=== PATIENT | female | born 1950 | race Caucasian/White ===

== ENCOUNTER 2019-01-31 11:50 | Emergency (ER) | payer MEDICARE ==
[2019-01-31 12:32] VITALS: BP 121/51; PULSE 71; O2SAT 95
--- NOTE | 2019-01-31 12:47 | ERPHSYRPT ---
- History of Present Illness Time Seen by Provider: 01/31/19 12:42 Source: patient, family Exam Limitations: clinical condition Patient Subjective Stated Complaint: Pt has been laying on her left side for a few weeks without movement, entire left abdomen laterally and medially are red, draining, bruised looking, left shoulder is stiff above her head, daughter has been her main neonatal critical care nurse and changing her depends and trying to wash her Triage Nursing Assessment: Pt brought by EMS, unable to turn by self, morbidly obese, vitals wnl, skin breaking down on entire left side of abdomen, rash on bilateral breasts, pulses normal, unable to tend to any needs, requires full assistance Physician History: Ms. Abraham is a 68 years old morbidly obese bedridden patient bought in to ER by Ambulance with c/o redness on her left side of body. Patient has been laying on her left side for a few weeks without movement, entire left abdomen laterally and medially are red, draining, bruised looking, left shoulder is stiff above her head, daughter has been her main neonatal critical care nurse and changing her depends and trying to wash her Timing/Duration: day(s) Severity: moderate Associated Symptoms: denies symptoms Allergies/Adverse Reactions: Sulfa (Sulfonamide Antibiotics) [Sulfa(Sulfonamide Antibiotics)] Allergy ( Verified 01/31/19 12:32) Home Medications: Albuterol 2.5 mg/0.5 ml [PROVENTIL Solution 2.5 MG/0.5 ML] 2.5 mg IH Q4HPRN PRN 07/22/15 [History] Albuterol Sulfate [Proair Hfa] 8.5 gm IH Q4H PRN PRN 07/22/15 [History] Alprazolam [Xanax] 2 mg PO TID 07/22/15 [History] Furosemide 40 mg [Lasix 40 MG] 40 mg PO BID 07/22/15 [History] Glimepiride 2 mg [Amaryl 2 MG] 2 mg PO BID 07/22/15 [History] Hydrocodone Bit/Acetaminophen [Hydrocodon-Acetaminophn 10-325] 1 each PO Q4- 6HPRN PRN 07/22/15 [History] Insulin Glargine,Hum.rec.anlog [Lantus Solostar] 55 unit SQ QAM 07/22/15 [ History] Levothyroxine Sodium [Synthroid] 25 mcg PO DAILY 07/22/15 [History] Loratadine 10 mg [Claritin 10 mg] 10 mg PO DAILY 07/22/15 [History] Metoprolol Succinate 25 mg PO DAILY 07/22/15 [History] Montelukast Sodium 10 mg PO DAILY 07/22/15 [History] Nystatin Cream 30 gm [Nystop 30 gm Cream] 30 gm TP BID 07/22/15 [History] Potassium Chloride 10 Meq Tab* [Klor Con 10 MEQ] 20 meq PO BID 07/22/15 [ History] Simvastatin [Zocor] 20 mg PO DAILY 07/22/15 [History] Insulin Lispro [Humalog Kwikpen U-100] 20 unit SQ BID 01/31/19 [History] raNITIdine HCl [Ranitidine HCl] 300 mg PO DAILY 01/31/19 [History] Hx Tetanus, Diphtheria Vaccination/Date Given: Yes (up to date) Hx Influenza Vaccination/Date Given: Yes Hx Pneumococcal Vaccination/Date Given: No - Review of Systems Constitutional: Other (morbidly obese woman), No Fever, No Chills Eyes: No Symptoms Ears, Nose, & Throat: No Symptoms Respiratory: No Cough, No Dyspnea Cardiac: No Chest Pain, No Edema, No Syncope Abdominal/Gastrointestinal: No Abdominal Pain, No Nausea, No Vomiting, No Diarrhea Genitourinary Symptoms: No Dysuria Musculoskeletal: No Back Pain, No Neck Pain Skin: Cellulitis, Decubiti, Induration, Rash, Dryness Neurological: No Dizziness, No Focal Weakness, No Sensory Changes Psychological: No Symptoms Endocrine: No Symptoms All Other Systems: Reviewed and Negative - Past Medical History Pertinent Past Medical History: Yes Neurological History: No Pertinent History ENT History: No Pertinent History Cardiac History: High Cholesterol, Hypertension Respiratory History: COPD, Emphysema Endocrine Medical History: Diabetes Type II, Hypothyroidism Musculoskeletal History: Arthritis, Osteoporosis GI Medical History: GERD History: Other Psycho-Social History: Anxiety Female Reproductive Disorders: No Pertinent History Other Medical History: CHRONIC KNEE PROBLEMS - Past Surgical History Past Surgical History: Yes Neuro Surgical History: No Pertinent History Cardiac: Cardiac Catheterization Respiratory: No Pertinent History Gastrointestinal: Appendectomy, Cholecystectomy Genitourinary: No Pertinent History Musculoskeletal: No Pertinent History Female Surgical History: Hysterectomy Other Surgical History: PARTIAL THYROIDECTOMY. cataract left eye. biopsy on liver - Social History Smoking Status: Former smoker How long have you smoked: 50 Exposure to second hand smoke: No Drug Use: none Patient Lives Alone: No - Female History Hx Now: No - Nursing Vital Signs Nursing Vital Signs: Initial Vital Signs Temperature 98.3 F 01/31/19 12:17 Pulse Rate 71 01/31/19 12:17 Blood Pressure 121/51 01/31/19 12:17 O2 Sat by Pulse Oximetry 95 01/31/19 12:17 Pain Scale Pain Intensity 9 - Physical Exam General Appearance: no apparent distress, alert Eye Exam: PERRL/EOMI, eyes nml inspection Ears, Nose, Throat Exam: normal ENT inspection, TMs normal, pharynx normal, moist mucous membranes Neck Exam: normal inspection, non-tender, supple Respiratory Exam: normal breath sounds, lungs clear, No respiratory distress Cardiovascular Exam: regular rate/rhythm, normal heart sounds, normal peripheral pulses Gastrointestinal/Abdomen Exam: soft, normal bowel sounds, No tenderness, No mass Back Exam: normal inspection, normal range of motion, No CVA tenderness, No vertebral tenderness Extremity Exam: normal inspection, normal range of motion, pelvis stable, inflammation Neurologic Exam: alert, oriented x 3, cooperative, sensation nml, No motor deficits Skin Exam: warm, dry, other (erythema on left side of body due to chronic immobility), No rash Lymphatic Exam: No adenopathy SpO2: 95 - Course Nursing assessment & vital signs reviewed: Yes Ordered Tests: Active Orders 24 hr Category Date Time Status Wound Care STAT Care 01/31/19 12:19 Active BLOOD CULTURE Stat Lab 01/31/19 13:00 Received CBC W DIFF Stat Lab 01/31/19 12:40 Completed CMP Stat Lab 01/31/19 12:40 Completed Lactic Acid Stat Lab 01/31/19 12:19 Completed Medication Summary Discontinued Medications Generic Name Dose Route Start Last Admin Trade Name Freq PRN Reason Stop Dose Admin Cefazolin Sodium 1 g 01/31/19 13:47 Kefzol 1 Gm IM 01/31/19 13:48 STAT ONE Cefazolin Sodium Confirm 01/31/19 14:08 Kefzol 1 Gm Administered 01/31/19 14:09 Dose 1 g .ROUTE .STK-MED ONE Cefazolin Sodium/Dextrose Confirm 01/31/19 14:00 Kefzol 1 Gm/50 Ml Premix Administered 01/31/19 14:01 Dose 1 gm in 50 mls @ ud IV .STK-MED ONE Ketorolac Tromethamine 30 mg 01/31/19 13:47 Toradol 30 Mg Injection IV 01/31/19 13:48 STAT ONE Ketorolac Tromethamine Confirm 01/31/19 14:00 Toradol 30 Mg Injection Administered 01/31/19 14:01 Dose 30 mg .ROUTE .STK-MED ONE Lab/Rad Data: Laboratory Result Diagrams 01/31/19 12:40 01/31/19 12:40 Laboratory Results 01/31/19 01/31/19 01/31/19 Range/Units 12:40 12:40 12:19 WBC 10.1 (4.0-10.5) K/mm3 RBC 2.69 L (4.1-5.4) M/mm3 Hgb 9.1 L (12.0-16.0) gm/dl Hct 29.9 L (35-47) % MCV 111.2 H (78-100) fl MCH 33.8 H (26-32) pg MCHC 30.4 L (32-36) g/dl RDW 17.0 H (11.5-14.0) % Plt Count 400 (150-450) K/mm3 MPV 9.7 H (6-9.5) fl Gran % 68.1 H (36.0-66.0) % Eos # (Auto) 0.35 (0-0.5) Absolute Lymphs (auto) 2.14 (1.0-4.6) Absolute Monos (auto) 0.67 (0.0-1.3) Lymphocytes % 21.3 L (24.0-44.0) % Monocytes % 6.7 (0.0-12.0) % Eosinophils % 3.5 (0.00-5.0) % Basophils % 0.4 (0.0-0.4) % Absolute Granulocytes 6.86 (1.4-6.9) Basophils # 0.04 (0-0.4) Sodium 140 (137-145) mmol/L Potassium 3.9 (3.5-5.1) mmol/L Chloride 96 L (98-107) mmol/L Carbon Dioxide 38 H (22-30) mmol/L Anion Gap 9.9 (5-15) MEQ/L BUN 12 (7-17) mg/dL Creatinine 0.34 L (0.52-1.04) mg/dL Estimated GFR > 60.0 ML/MIN Glucose 136 H (74-106) mg/dL Lactic Acid 1.5 (0.4-2.0) Calcium 9.0 (8.4-10.2) mg/dL Total Bilirubin 1.90 H (0.2-1.3) mg/dL AST 38 H (14-36) U/L ALT 22 (0-35) U/L Alkaline Phosphatase 66 (38-126) U/L Serum Total Protein 7.7 (6.3-8.2) g/dL Albumin 3.7 (3.5-5.0) g/dL - Progress Progress: unchanged Counseled pt/family regarding: diagnosis, need for follow-up - Departure Departure Disposition: Home Clinical Impression: Cellulitis and abscess of other specified site Pressure injury of buttock, stage 1 Qualifiers: Laterality: left Qualified Code(s): L89.321 - Pressure ulcer of left buttock, stage 1 Condition: Stable Critical Care Time: Yes Critical Care Time(excluding separately billable procedures): Critical 30-74 mins Referrals: KATHE MORAN [Primary Care Provider] - Instructions: Pressure Sores (DC), How to Prevent Pressure Sores Additional Instructions: ZACK ABRAHAMEddie RODGERS was seen on 01/31/19 n the Emergency Room. At that time you were treated for an emergent condition, during your visit Laboratory, Radiology and/or other procedures may have been ordered. It is very important that you follow-up with your Primary Care Physician KATHE MORAN within the next 24- 48 hours to review your Emergency Room visit and the final results of testing that was ordered. Some test results such as Urine Cultures, Blood Cultures, and other cultures if ordered will not be finalized for 24-48 hours. If you do not have a Primary Care Provider please call the medical records department at [phone] to obtain a copy of your results or you may sign into our patient portal to obtain these results by visiting us @ [email or web address] and completing the following steps: 1. Click on the Patient Portal link 2. Click the Patient Self Enrollment Link to complete the enrollment form and entering your 3. Once the enrollment form is completed you will receive an email with a temporary ID and password at the email address you provided. 4. Next choose a user name and password. Your user name must be at least 4 characters long and your password must be at least 4 characters long. 5. Choose a security question from the list and provide your answer to the question. If you already have signed into the Health Portal you may access your Health Care Information 17/12 by the following steps: 1. Login to our website @ [email or web address] 2. Enter your original user name and password. FAQS The [facility] Health Portal is an online tool that contains your Lab Results, Radiology Reports, Visit History, Discharge Instructions and Health Summary Lab and Radiology Results will not be available for 72 hours on the portal. The Portal is a secure site, passwords are encryted and URLs are re-written so they cannot be copied and pasted. You and authorized family members are the only ones who can access your Portal. Also there is a timeout feature that protects your information if you leave the Portal page open. If you have technical difficulty please use the Contact Us link on the page this will allow you to submit any questions you have regarding the Portal or you may contact the Medical Record Department at [phone] ext [phone]. Discharge/Care Plan YESI ABRAHAM was seen on 01/31/19 in the Emergency Room. The patient was counseled regarding Diagnosis,Lab results, Imaging studies, need for follow up and when to return to the Emergency Room. Prescriptions given: Discharge Note I have spoken with the patient and/or caregivers. I have explained the patient' s condition, diagnosis and treatment plan based on the information available to me at this time. I have answered the patient's and/or caregiver's questions and addressed any concerns. The patient and/or caregivers have as good understanding of the patient's diagnosis, condition and treatment plan as can be expected at this point. The vital signs have been stable. The patient's condition is stable and appropriate for discharge from the emergency department. The patient will pursue further outpatient evaluation with the primary care physician or other designated or consulting physician as outlined in the discharge instructions. The patient and/or caregivers are agreeable to this plan of care and follow-up instructions have been explained in detail. The patient and/or caregivers have received these instruction. The patient/and or caregivers are aware that any significant change in condition or worsening of symptoms should prompt an immediate return to this or the closest emergency department or call 911. Prescriptions: Ciprofloxacin HCl/Dexameth [Ciprodex Otic Suspension] 7.5 ml OT QID #7.5 drops.susp Cephalexin Mh 500 mg [Keflex 500 mg] 500 mg PO Q6H #40 capsule Naproxen 375 mg [Naprosyn 375 mg] 375 mg PO Q8H #30 tablet
[2019-01-31 13:11] LABS: BASOPHIL % 0.4 % (0.0-0.4); Basophil (Absolute #) 0.04 (0-0.4); Eosinophil % 3.5 % (0.00-5.0); Eosinophil (Absolute #) 0.35 (0-0.5); Granulocyte Absolute (ANC) 6.86 (1.4-6.9); Granulocytes % 68.1 % (36.0-66.0); Hematocrit 29.9 % (35-47); Hemoglobin 9.1 gm/dl (12.0-16.0); Lymphocyte (Absolute #) 2.14 (1.0-4.6); Lymphocytes % 21.3 % (24.0-44.0); Mean Cell Volume 111.2 fl (78-100); Mean Corpuscular Hemoglobin 33.8 pg (26-32); Mean Corpuscular Hgb Concent. 30.4 g/dl (32-36); Mean Platelet Volume 9.7 fl (6-9.5); Monocyte (Absolute #) 0.67 (0.0-1.3); Monocytes % 6.7 % (0.0-12.0); Platelet Count 400 K/mm3 (150-450); Red Blood Count 2.69 M/mm3 (4.1-5.4); White Blood Count 10.1 K/mm3 (4.0-10.5)
[2019-01-31 13:16] LABS: ALBUMIN 3.7 g/dL (3.5-5.0); ALKALINE PHOSPHATASE 66 U/L (38-126); BLOOD UREA NITROGEN 12 mg/dL (7-17); CHLORIDE 96 mmol/L (98-107); Creatinine 1 0.34 mg/dL (0.52-1.04); Glucose 136 mg/dL (74-106); Potassium 3.9 mmol/L (3.5-5.1); SGOT/AST 38 U/L (14-36); SGPT/ALT 22 U/L (0-35); SODIUM 140 mmol/L (137-145); Total Protein 7.7 g/dL (6.3-8.2)
[2019-01-31 13:22] LABS: Carbon Dioxide 38 mmol/L (22-30)
[2019-01-31 13:30] LABS: ANION GAP 9.9 MEQ/L (5-15)
[2019-01-31] MEDS ORDERED: KEFZOL 1 GM IM ONE (13:47)
[2019-01-31] MEDS ORDERED: TORAdol 30 mg Injection IV ONE (13:47)
[2019-01-31] MEDS ORDERED: KEFZOL IV ONE (14:00)
[2019-01-31] MEDS ORDERED: TORAdol 30 mg Injection ONE (14:00)
[2019-01-31] MEDS ORDERED: KEFZOL 1 GM ONE (14:08)
== END 2019-01-31 15:04 | disposition home or self-care (01) ==
LOC: ED 11:50
DX: L03.818 Cellulitis of other sites (principal); L02.818 Cutaneous abscess of other sites; L89.321 Pressure ulcer of left buttock, stage 1
CPT/HCPCS: 36415; 80053; 83605; 85025; 87040; 96372; 96374; 99284; 99291; J0690; J1885

== ENCOUNTER 2020-06-28 16:53 | Observation (INO) | payer MEDICARE ==
[2020-06-28] MEDS ORDERED: Sodium Chloride 0.9% 1000 ML 1,000 ML IV SCH (17:15)
[2020-06-28] MEDS ORDERED: MORPHINE SULFATE 4 MG INJ IV ONE ×2 (17:15→19:22)
[2020-06-28 17:31] LABS: A-aADO2 41; ABG HEMOGLOBIN 11.8; ABG POTASSIUM 4.7 (3.5-5.1); ARTERIAL BLOOD GAS BASE EXCESS 23.5 (-2.0-2.0); ARTERIAL BLOOD GAS FIO2 28 %; ARTERIAL BLOOD GAS PCO2 38 mmHg (35-45); ARTERIAL BLOOD GAS PO2 111 mmHg (75-100); HCO3- 45.9 (22-28); HGB O2 SAT 90.5 g/dF (94-100); Methhemoglobin 1.1 % (1.4-1.5)
[2020-06-28 17:32] LABS: ARTERIAL BLOOD GAS pH 7.69 (7.35-7.45)
[2020-06-28 17:33] LABS: CARBOXYHEMOGLOBIN 7.4 % THgb (0.0-6.9)
--- NOTE | 2020-06-28 17:37 | ERPHSYRPT ---
- History of Present Illness Time Seen by Provider: 06/28/20 16:58 Source: patient Exam Limitations: no limitations Patient Subjective Stated Complaint: Pt states "I am not sure why I am here.". EMS states "Her sister called and stated she was more confused than normal. She is bed confined, she is on oxygen all the time at 2 lpm." Triage Nursing Assessment: Pt presented alert and oriented X 3, skin pwd Pt presented layin in left lateral position. PT left ear is red and painful. Pt night gown soiled and smelled of urine. PT pleasant. Physician History: Patient is a 70-year-old female, morbidly obese presents to our ED for evaluation of altered mental status. Patient sister observed that patient appears confused. Patient reportedly is experiencing visual hallucinations. Per report patient has been bedridden for over 2.5 years. EMS reports that patient was lying in stool and urine. No fevers reported. Patient is not sure why she is in the ED. She denies pain. No nausea or vomiting. No diarrhea r eported. Symptoms are mild to moderate in intensity. No specific worsening or improving factors. Patient unable to provide any significant information at this time. Patient voices no other complaints or concerns. No trauma reported. Timing/Duration: today Severity: moderate Modifying Factors: Improves With: nothing Associated Symptoms: denies symptoms Allergies/Adverse Reactions: Sulfa (Sulfonamide Antibiotics) [Sulfa(Sulfonamide Antibiotics)] Allergy (Verified 06/28/20 20:13) Home Medications: Albuterol Sulfate [Proair Hfa] 2 puffs IH Q4H PRN PRN 07/22/15 [History] Furosemide 40 mg [Lasix 40 MG] 40 mg PO BID 07/22/15 [History] Glimepiride 2 mg [Amaryl 2 MG] 4 mg PO BID 07/22/15 [History] Loratadine 10 mg [Claritin 10 mg] 10 mg PO DAILY 07/22/15 [History] Montelukast Sodium 10 mg PO DAILY 07/22/15 [History] Nystatin Cream 30 gm [Nystop 30 gm Cream] 30 gm TP BID 07/22/15 [History] Potassium Chloride 10 Meq Tab* [Klor Con 10 MEQ] 10 meq PO QID 07/22/15 [History] Simvastatin [Zocor] 20 mg PO DAILY 07/22/15 [History] Alprazolam 1 mg [Xanax 1 mg] 1 mg PO TID 06/28/20 [History] Bupropion HCl [Wellbutrin Xl] 300 mg PO DAILY 06/28/20 [History] Diclofenac Sodium Gel [Voltaren GEL] 1 applic TOP QID PRN 06/28/20 [History] Docusate Sodium 100 mg [Colace 100 MG] 100 mg PO BID 06/28/20 [History] Fluticasone Furoate [Arnuity Ellipta] 1 puff IH DAILY 06/28/20 [History] Hydrocodone Bit/Acetaminophen [Hydrocodon-Acetaminoph 7.5-325] 1 each PO Q6HPRN PRN 06/28/20 [History] Insulin Glargine,Hum.rec.anlog [Lantus Solostar] 50 unit SQ DAILY 06/28/20 [History] Levothyroxine Sodium [Synthroid] 125 mcg PO DAILY 06/28/20 [History] Metoprolol Tartrate 25 mg [Lopressor 25MG Tab] 25 mg PO DAILY 06/28/20 [History] Naloxegol Oxalate [Movantik] 25 mg PO DAILY 06/28/20 [History] Omeprazole 20 mg PO DAILY 06/28/20 [History] hydrOXYzine HCL [Hydroxyzine HCl] 50 mg PO Q6H PRN PRN 06/28/20 [History] Hx Tetanus, Diphtheria Vaccination/Date Given: No Hx Influenza Vaccination/Date Given: Yes Hx Pneumococcal Vaccination/Date Given: No Immunizations Up to Date: Yes Travel Risk - International Travel Have you traveled outside of the country in past 3 weeks: No - Coronavirus Screening Are you exhibiting any of the following symptoms?: No Close contact with a COVID-19 positive Pt in past 14-21 Days: No - Review of Systems Respiratory: Dyspnea All Other Systems: Unable due to condition - Past Medical History Pertinent Past Medical History: Yes Neurological History: No Pertinent History ENT History: No Pertinent History Cardiac History: High Cholesterol, Hypertension Respiratory History: COPD, Emphysema Endocrine Medical History: Diabetes Type II, Hypothyroidism Musculoskeletal History: Arthritis, Osteoporosis GI Medical History: GERD History: Other Psycho-Social History: Anxiety Female Reproductive Disorders: No Pertinent History Other Medical History: CHRONIC KNEE PROBLEMS - Past Surgical History Past Surgical History: Yes Neuro Surgical History: No Pertinent History Cardiac: Cardiac Catheterization Respiratory: No Pertinent History Gastrointestinal: Appendectomy, Cholecystectomy Genitourinary: No Pertinent History Musculoskeletal: No Pertinent History Female Surgical History: Hysterectomy Other Surgical History: PARTIAL THYROIDECTOMY. cataract left eye. biopsy on liver - Social History Smoking Status: Former smoker How long have you smoked: 50 Exposure to second hand smoke: No Drug Use: none Patient Lives Alone: No - Female History Hx Now: No - Nursing Vital Signs Nursing Vital Signs: Initial Vital Signs Temperature 97.3 F 06/28/20 16:53 Pulse Rate 74 06/28/20 16:53 Respiratory Rate 20 06/28/20 16:53 Blood Pressure 156/60 06/28/20 16:53 O2 Sat by Pulse Oximetry 97 06/28/20 16:53 Pain Scale Pain Intensity 2 - Physical Exam General Appearance: no apparent distress, alert, other (morbidly obese female. Patient is lying on her left side with her left arm above her head. Patient reportedly has been in this position for 2 years.) Eye Exam: PERRL/EOMI, eyes nml inspection Ears, Nose, Throat Exam: normal ENT inspection, TMs normal, pharynx normal, moist mucous membranes Neck Exam: normal inspection, non-tender, supple, full range of motion Respiratory Exam: normal breath sounds, lungs clear, No respiratory distress Cardiovascular Exam: regular rate/rhythm, normal heart sounds, normal peripheral pulses Gastrointestinal/Abdomen Exam: soft, normal bowel sounds, No tenderness, No mass Back Exam: normal inspection, normal range of motion, No CVA tenderness, No jaxson tebral tenderness Extremity Exam: normal inspection, normal range of motion, pelvis stable, limited range of motion (Left hip range of motion limited.), other (Pain at left shoulder. Left shoulder was initially fixed in the flexed externally rotated position however she was later able to bring it down to her side.) Neurologic Exam: alert, oriented x 3, cooperative, normal mood/affect, nml cerebellar function, nml station & gait, sensation nml, No motor deficits Skin Exam: normal color, warm, dry, No rash Lymphatic Exam: No adenopathy SpO2 Interpretation: normal SpO2: 97 O2 Delivery: Room Air - Course Nursing assessment & vital signs reviewed: Yes EKG Interpreted by Me: RATE (74), Sinus Rhythm, NORMAL AXIS, NORMAL INTERVALS - Radiology Exams Shoulder X-ray Interpretation: Interpreted by me (No fracture or dislocation. Osteopenia.) - CT Exams Head CT Interpretation: Tele-radiologist Report (Nonacute senile brain) Ordered Tests: Active Orders 24 hr Category Date Time Status Floor Installer STAT Care 06/28/20 17:07 Active EKG-ER Only STAT Care 06/28/20 17:06 Active IV Insertion STAT Care 06/28/20 17:06 Active Pulse Oximetry (ED) STAT Care 06/28/20 17:06 Active HEAD WITHOUT CONTRAST [CT] Stat Exams 06/28/20 17:17 Taken SHOULDER Stat Exams 06/28/20 18:19 Taken ARTERIAL BLOOD GASES Stat Lab 06/28/20 17:06 Completed BLOOD CULTURE Stat Lab 06/28/20 17:50 Received CBC W DIFF Stat Lab 06/28/20 17:37 Completed CK-Creatinine Phosphokinase Urgent Lab 06/28/20 17:37 Completed CMP Stat Lab 06/28/20 17:37 Completed CULTURE,URINE Stat Lab 06/28/20 19:37 Received Lactic Acid Stat Lab 06/28/20 17:06 Completed TROPONIN Q3H Lab 06/28/20 17:37 Completed TROPONIN Q3H Lab 06/28/20 20:15 Ordered TROPONIN Q3H Lab 06/28/20 23:15 Ordered TROPONIN Q3H Lab 06/29/20 02:15 Ordered TROPONIN Q3H Lab 06/29/20 05:15 Ordered TSH, 3RD Generation Urgent Lab 06/28/20 17:37 Completed UA W/RFX UR CULTURE Stat Lab 06/28/20 19:37 Completed Transfer Order Routine Transfer 06/28/20 Ordered Medication Summary Generic Name Dose Route Start Last Admin Trade Name Freq PRN Reason Stop Dose Admin Sodium Chloride 1,000 mls @ 100 mls/hr 06/28/20 17:15 06/28/20 17:49 Sodium Chloride 0.9% 1000 Ml IV 07/28/20 17:14 100 mls/hr .Q10H BERNARDINO Administration Discontinued Medications Generic Name Dose Route Start Last Admin Trade Name Freq PRN Reason Stop Dose Admin Morphine Sulfate 4 mg 06/28/20 17:15 06/28/20 17:52 Morphine Sulfate 4 Mg Inj IV 06/28/20 17:16 4 mg STAT ONE Administration Morphine Sulfate Confirm 06/28/20 17:46 Morphine Sulfate 4 Mg Inj Administered 06/28/20 17:47 Dose 4 mg .ROUTE .STK-MED ONE Morphine Sulfate 4 mg 06/28/20 19:22 06/28/20 19:26 Morphine Sulfate 4 Mg Inj IV 06/28/20 19:23 4 mg STAT ONE Administration Morphine Sulfate Confirm 06/28/20 19:25 Morphine Sulfate 4 Mg Inj Administered 06/28/20 19:26 Dose 4 mg .ROUTE .STK-MED ONE Lab/Rad Data: Laboratory Result Diagrams 06/28/20 17:37 06/28/20 17:37 Laboratory Results 06/28/20 06/28/20 06/28/20 Range/Units 19:37 17:37 17:37 WBC (4.0-10.5) K/mm3 RBC (4.1-5.4) M/mm3 Hgb (12.0-16.0) gm/dl Hct (35-47) % MCV (78-100) fl MCH (26-32) pg MCHC (32-36) g/dl RDW (11.5-14.0) % Plt Count (150-450) K/mm3 MPV (7.5-11.0) fl Gran % (36.0-66.0) % Eos # (Auto) (0-0.5) Absolute Lymphs (auto) (1.0-4.6) Absolute Monos (auto) (0.0-1.3) Lymphocytes % (24.0-44.0) % Monocytes % (0.0-12.0) % Eosinophils % (0.00-5.0) % Basophils % (0.0-0.4) % Absolute Granulocytes (1.4-6.9) Basophils # (0-0.4) Puncture Site pCO2 (35-45) mmHg pO2 (75-100) mmHg Base Excess (-2.0-2.0) O2 Saturation (94-100) g/dF ABG pH (7.35-7.45) ABG HCO3 (22-28) ABG O2 Sat (Measured) (95-100) % Dustin Test A-a Gradient a/A Ratio Hemoglobin Carboxyhemoglobin (0.0-6.9) % THgb Methemoglobin (1.4-1.5) % Potassium 4.1 (3.5-5.1) Temperature C POC O2 Flow Rate % Sodium 139 (137-145) mmol/L Chloride 88 L (98-107) mmol/L Carbon Dioxide 46 H (22-30) mmol/L Anion Gap 9.1 (5-15) MEQ/L BUN 12 (7-17) mg/dL Creatinine 0.27 L (0.52-1.04) mg/dL Estimated GFR > 60.0 ML/MIN Glucose 156 H (74-106) mg/dL Lactic Acid (0.4-2.0) Calcium 9.5 (8.4-10.2) mg/dL Total Bilirubin 0.90 (0.2-1.3) mg/dL AST 33 (14-36) U/L ALT 17 (0-35) U/L Alkaline Phosphatase 60 (38-126) U/L Creatine Kinase < 20 L (30-135) U/L Troponin I < 0.012 (0.000-0.034) ng/mL Serum Total Protein 7.3 (6.3-8.2) g/dL Albumin 3.7 (3.5-5.0) g/dL TSH 3rd Generation 0.093 L (0.47-4.68) mIU/L Urine Color YELLOW (YELLOW) Urine Appearance CLOUDY (CLEAR) Urine pH 7.0 (5-6) Ur Specific Zwingle 1.015 (1.005-1.025) Urine Protein 30 (Negative) Urine Ketones NEGATIVE (NEGATIVE) Urine Blood SMALL (0-5) Eugenio/ul Urine Nitrite NEGATIVE (NEGATIVE) Urine Bilirubin NEGATIVE (NEGATIVE) Urine Urobilinogen 4 (0-1) mg/dL Ur Leukocyte Esterase NEGATIVE (NEGATIVE) Urine WBC (Auto) 3-5 (0-5) /HPF Urine RBC (Auto) 3-5 (0-2) /HPF U Epithel Cells (Auto) NONE (FEW) /HPF Urine Bacteria (Auto) RARE (NEGATIVE) /HPF Amorphous Crystals FEW (NEGATIVE) /HPF Urine Mucus (Auto) MANY (NEGATIVE) /HPF Urine Culture Reflexed YES (NO) Urine Glucose NEGATIVE (NEGATIVE) mg/dL 02/02/21 02/02/21 Range/Units 17:37 17:06 WBC 5.1 (4.0-10.5) K/mm3 RBC 3.62 L (4.1-5.4) M/mm3 Hgb 11.4 L (12.0-16.0) gm/dl Hct 38.5 (35-47) % MCV 106.4 H (78-100) fl MCH 31.5 (26-32) pg MCHC 29.6 L (32-36) g/dl RDW 12.8 (11.5-14.0) % Plt Count 167 (150-450) K/mm3 MPV 10.3 (7.5-11.0) fl Gran % 38.3 (36.0-66.0) % Eos # (Auto) 0.21 (0-0.5) Absolute Lymphs (auto) 2.57 (1.0-4.6) Absolute Monos (auto) 0.37 (0.0-1.3) Lymphocytes % 50.2 H (24.0-44.0) % Monocytes % 7.2 (0.0-12.0) % Eosinophils % 4.1 (0.00-5.0) % Basophils % 0.2 (0.0-0.4) % Absolute Granulocytes 1.96 (1.4-6.9) Basophils # 0.01 (0-0.4) Puncture Site RIGHT RADIAL pCO2 38 (35-45) mmHg pO2 111 H (75-100) mmHg Base Excess 23.5 H (-2.0-2.0) O2 Saturation 90.5 L (94-100) g/dF ABG pH 7.69 H* (7.35-7.45) ABG HCO3 45.9 H* (22-28) ABG O2 Sat (Measured) 99.0 (95-100) % Dustin Test YES A-a Gradient 41 a/A Ratio 0.73 Hemoglobin 11.8 Carboxyhemoglobin 7.4 H* (0.0-6.9) % THgb Methemoglobin 1.1 L (1.4-1.5) % Potassium 4.7 (3.5-5.1) Temperature 37.0 C POC O2 Flow Rate 28 % Sodium (137-145) mmol/L Chloride (98-107) mmol/L Carbon Dioxide (22-30) mmol/L Anion Gap (5-15) MEQ/L BUN (7-17) mg/dL Creatinine (0.52-1.04) mg/dL Estimated GFR ML/MIN Glucose (74-106) mg/dL Lactic Acid 1.0 (0.4-2.0) Calcium (8.4-10.2) mg/dL Total Bilirubin (0.2-1.3) mg/dL AST (14-36) U/L ALT (0-35) U/L Alkaline Phosphatase (38-126) U/L Creatine Kinase (30-135) U/L Troponin I (0.000-0.034) ng/mL Serum Total Protein (6.3-8.2) g/dL Albumin (3.5-5.0) g/dL TSH 3rd Generation (0.47-4.68) mIU/L Urine Color (YELLOW) Urine Appearance (CLEAR) Urine pH (5-6) Ur Specific Zwingle (1.005-1.025) Urine Protein (Negative) Urine Ketones (NEGATIVE) Urine Blood (0-5) Eugenio/ul Urine Nitrite (NEGATIVE) Urine Bilirubin (NEGATIVE) Urine Urobilinogen (0-1) mg/dL Ur Leukocyte Esterase (NEGATIVE) Urine WBC (Auto) (0-5) /HPF Urine RBC (Auto) (0-2) /HPF U Epithel Cells (Auto) (FEW) /HPF Urine Bacteria (Auto) (NEGATIVE) /HPF Amorphous Crystals (NEGATIVE) /HPF Urine Mucus (Auto) (NEGATIVE) /HPF Urine Culture Reflexed (NO) Urine Glucose (NEGATIVE) mg/dL - Progress Progress: improved Progress Note: 06/28/20 20:41 Patient reassessed. She appears well. Patient denies pain. ABG reveals a compensatory metabolic alkalosis. Patient has been laying on her left side for approximately 2 years. Left shoulder and left hip range of motion limited. CT head negative for acute intracranial pathology. Per report, it appears patient is receiving suboptimal care. Patient will likely need to be placed. Case discussed with Dr. Bowen who accepts admission to observation. Plan of care discussed with patient. She agrees to admission at [facility] for further evaluation and treatment. Discussed with .: Marga Will see patient in: hospital (observation) Counseled pt/family regarding: diagnosis, rad results - Departure Departure Disposition: Observation Clinical Impression: Low TSH level, Altered mental status, Metabolic alkalosis with respiratory acidosis, Megaloblastic anemia Condition: Stable Critical Care Time: No Referrals: KATHE MORAN [Primary Care Provider] -
[2020-06-28] MEDS ORDERED: Sodium Chloride 0.9% 1000 ML 1,000 ML ONE (17:46)
[2020-06-28] MEDS ORDERED: MORPHINE SULFATE 4 MG INJ ONE ×2 (17:46→19:25)
[2020-06-28 17:55] LABS: Absolute Neutrophil Ct (ANC) 1.96 (1.4-6.9); BASOPHIL % 0.2 % (0.0-0.4); Basophil (Absolute #) 0.01 (0-0.4); Eosinophil % 4.1 % (0.00-5.0); Eosinophil (Absolute #) 0.21 (0-0.5); Hematocrit 38.5 % (35-47); Hemoglobin 11.4 gm/dl (12.0-16.0); Lymphocyte (Absolute #) 2.57 (1.0-4.6); Lymphocytes % 50.2 % (24.0-44.0); Mean Cell Volume 106.4 fl (78-100); Mean Corpuscular Hemoglobin 31.5 pg (26-32); Mean Corpuscular Hgb Concent. 29.6 g/dl (32-36); Mean Platelet Volume 10.3 fl (7.5-11.0); Monocyte (Absolute #) 0.37 (0.0-1.3); Monocytes % 7.2 % (0.0-12.0); Neutrophil % 38.3 % (36.0-66.0); Platelet Count 167 K/mm3 (150-450); Red Blood Count 3.62 M/mm3 (4.1-5.4); Red Cell Distribution Width 12.8 % (11.5-14.0); White Blood Count 5.1 K/mm3 (4.0-10.5)
[2020-06-28 18:09] LABS: ABG SITE RIGHT RADIAL; ALLEN TEST OK? YES
[2020-06-28 18:24] LABS: ALBUMIN 3.7 g/dL (3.5-5.0); ALKALINE PHOSPHATASE 60 U/L (38-126); BLOOD UREA NITROGEN 12 mg/dL (7-17); CHLORIDE 88 mmol/L (98-107); Calcium 9.5 mg/dL (8.4-10.2); Creatinine 1 0.27 mg/dL (0.52-1.04); EST GLOMERULAR FILTRATION RATE > 60.0 ML/MIN; Glucose 156 mg/dL (74-106); Potassium 4.1 mmol/L (3.5-5.1); SGOT/AST 33 U/L (14-36); SGPT/ALT 17 U/L (0-35); SODIUM 139 mmol/L (137-145); Total Protein 7.3 g/dL (6.3-8.2)
[2020-06-28 18:54] LABS: TROPONIN < 0.012 ng/mL (0.000-0.034); TSH, 3RD Generation 0.093 mIU/L (0.47-4.68)
[2020-06-28 18:56] LABS: Carbon Dioxide 46 mmol/L (22-30)
[2020-06-28 18:58] LABS: ANION GAP 9.1 MEQ/L (5-15); CK-Creatinine Phosphokinase < 20 U/L (30-135)
[2020-06-28 20:34] LABS: Amourphous Crystal FEW /HPF (NEGATIVE); Appearance CLOUDY (CLEAR); Bacteria RARE /HPF (NEGATIVE); Bilirubin NEGATIVE (NEGATIVE); Blood SMALL Ery/ul (0-5); Glucose NEGATIVE (NEGATIVE); Ketones NEGATIVE (NEGATIVE); Leukocyte Esterase NEGATIVE (NEGATIVE); Mucus MANY /HPF (NEGATIVE); Nitrite NEGATIVE (NEGATIVE); Protein,Urine Dip 30 (Negative); Specific Gravity 1.015 (1.005-1.025); Urobilinogen 4 mg/dL (0-1)
[2020-06-28] MEDS ORDERED: MORPHINE SULFATE 2 MG INJ IV PRN (22:54)
[2020-06-28] MEDS ORDERED: HUMALOG SQ PRN (23:31)
[2020-06-29 01:41] LABS: Absolute Neutrophil Ct (ANC) 5.06 (1.4-6.9); BASOPHIL % 0.3 % (0.0-0.4); Basophil (Absolute #) 0.02 (0-0.4); Eosinophil (Absolute #) 0 (0-0.5); Hemoglobin 10.5 gm/dl (12.0-16.0); Lymphocyte (Absolute #) 1.13 (1.0-4.6); Lymphocytes % 16.8 % (24.0-44.0); Mean Cell Volume 104.8 fl (78-100); Mean Corpuscular Hemoglobin 31.4 pg (26-32); Monocyte (Absolute #) 0.52 (0.0-1.3); Monocytes % 7.7 % (0.0-12.0); Neutrophil % 75.2 % (36.0-66.0); Platelet Count 156 K/mm3 (150-450); Red Blood Count 3.34 M/mm3 (4.1-5.4); Red Cell Distribution Width 12.7 % (11.5-14.0); White Blood Count 6.7 K/mm3 (4.0-10.5)
[2020-06-29] MEDS ORDERED: VENTOLIN COMMON CANISTER IH PRN ×2 (01:43→09:51)
[2020-06-29 01:54] LABS: ALBUMIN 3.3 g/dL (3.5-5.0); ALKALINE PHOSPHATASE 51 U/L (38-126); BLOOD UREA NITROGEN 12 mg/dL (7-17); CHLORIDE 93 mmol/L (98-107); Calcium 8.8 mg/dL (8.4-10.2); Creatinine 1 0.17 mg/dL (0.52-1.04); EST GLOMERULAR FILTRATION RATE > 60.0 ML/MIN; Glucose 140 mg/dL (74-106); Potassium 3.9 mmol/L (3.5-5.1); SGOT/AST 27 U/L (14-36); SGPT/ALT 15 U/L (0-35); SODIUM 138 mmol/L (137-145); Total Protein 6.7 g/dL (6.3-8.2)
[2020-06-29 02:05] LABS: ANION GAP 6.9 MEQ/L (5-15); Carbon Dioxide 42 mmol/L (22-30)
[2020-06-29] MEDS: Sodium Chloride 0.9% 1000 ML 1,000 ML IV SCH ×2 (04:42→14:48)
[2020-06-29] MEDS ORDERED: NORCO 5/325 MG PO PRN (08:15)
--- NOTE | 2020-06-29 08:20 | PCM.HP ---
History of Present Illness - Chief Complaint Chief Complaint: alteren mental status History of Present Illness: is a 70 year old female pt of Dr. Alegria'kianna with morbid obesity, COPD, HTN, hyperlipidemia, DM II, hypothyroid, OA, osteoporosis, GERD, and anxiety who was admitted through ER with altered mental status. Per ER note, pt's sister had noted pt was having hallucinations. When pt was brought in, she was in soiled nightgown (urine and feces). Pt has apparently been bedridden for the past 2.5 years. Other than being cleaned, she has been lying on her L side during that time. She does c/o bilateral ear pain, L>R. In ER her L shoulder was manipulated out of the posit ion it's been in for some time. Pt did not have a current med list, so one is being requested from the pharmacy. This morning she says she would feel better if she could just go home. She is oriented to place but not to time. - Review of Systems All Other Systems: Unable due to condition Medications & Allergies Home Medications: Home Medication List Albuterol Sulfate [Proair Hfa] 2 puffs IH Q4H PRN PRN 07/22/15 [History Confirmed 06/28/20] Furosemide 40 mg [Lasix 40 MG] 40 mg PO BID 07/22/15 [History Confirmed 06/28/20] Glimepiride 2 mg [Amaryl 2 MG] 4 mg PO BID 07/22/15 [History Confirmed 06/28/20] Loratadine 10 mg [Claritin 10 mg] 10 mg PO DAILY 07/22/15 [History Confirmed 06/28/20] Montelukast Sodium 10 mg PO DAILY 07/22/15 [History Confirmed 06/28/20] Nystatin Cream 30 gm [Nystop 30 gm Cream] 30 gm TP BID 07/22/15 [History Confirmed 06/28/20] Potassium Chloride 10 Meq Tab* [Klor Con 10 MEQ] 10 meq PO QID 07/22/15 [History Confirmed 06/28/20] Simvastatin [Zocor] 20 mg PO DAILY 07/22/15 [History Confirmed 06/28/20] Alprazolam 1 mg [Xanax 1 mg] 1 mg PO TID 06/28/20 [History Confirmed 06/28/20] Bupropion HCl [Wellbutrin Xl] 300 mg PO DAILY 06/28/20 [History Confirmed 06/28/20] Diclofenac Sodium Gel [Voltaren GEL] 1 applic TOP QID PRN 06/28/20 [History Confirmed 06/28/20] Docusate Sodium 100 mg [Colace 100 MG] 100 mg PO BID 06/28/20 [History Confirmed 06/28/20] Fluticasone Furoate [Arnuity Ellipta] 1 puff IH DAILY 06/28/20 [History Confirmed 06/28/20] Hydrocodone Bit/Acetaminophen [Hydrocodon-Acetaminoph 7.5-325] 1 each PO Q6HPRN PRN 06/28/20 [History Confirmed 06/28/20] Insulin Glargine,Hum.rec.anlog [Lantus Solostar] 50 unit SQ DAILY 06/28/20 [History Confirmed 06/28/20] Levothyroxine Sodium [Synthroid] 125 mcg PO DAILY 06/28/20 [History Confirmed 06/28/20] Metoprolol Tartrate 25 mg [Lopressor 25MG Tab] 25 mg PO DAILY 06/28/20 [H istory Confirmed 06/28/20] Naloxegol Oxalate [Movantik] 25 mg PO DAILY 06/28/20 [History Confirmed 06/28/20] Omeprazole 20 mg PO DAILY 06/28/20 [History Confirmed 06/28/20] hydrOXYzine HCL [Hydroxyzine HCl] 50 mg PO Q6H PRN PRN 06/28/20 [History Confirmed 06/28/20] Allergies/Adverse Reactions: Allergies Allergy/AdvReac Type Severity Reaction Status Date / Time Sulfa (Sulfonamide Allergy Unknown Verified 06/28/20 22:56 Antibiotics) [Sulfa(Sulfonamide Antibiotics)] - Past Medical History Past Medical History: Yes Neurological History: No Pertinent History ENT History: No Pertinent History Cardiac History: High Cholesterol, Hypertension Respiratory History: COPD, Emphysema Endocrine Medical History: Diabetes Type II, Hypothyroidism Musculoskelatal History: Arthritis, Osteoporosis GI Medical History: GERD History: Other Pyscho-Social History: Anxiety Reproductive Disorders: No Pertinent History Comment: CHRONIC KNEE PROBLEMS - Female History Are you now?: No - Past Surgical History Past Surgical History: Yes Neuro Surgical History: No Pertinent History Cardiac History: Cardiac Catheterization Respiratory Surgery: No Pertinent History GI Surgical History: Appendectomy, Cholecystectomy Genitourinary Surgical Hx: No Pertinent History Musculskeletal Surgical Hx: No Pertinent History Female Surgical History: Hysterectomy Other Surgical History: PARTIAL THYROIDECTOMY. cataract left eye. biopsy on liver - Social History Smoking Status: Former smoker How long have you smoked: 50 Exposure to second hand smoke: No Alcohol: None Drug Use: none - Physical Exam Vital Signs: Vital Signs - 24 hr Temp Pulse Resp BP Pulse Ox 06/29/20 07:59 78 18 95 06/29/20 07:27 100.4 F 80 20 147/67 96 06/29/20 04:00 98.3 F 80 18 129/62 97 06/29/20 01:22 82 18 93 L 06/28/20 23:04 98.5 F 84 18 130/58 95 06/28/20 20:44 97 06/28/20 20:00 80 17 118/64 94 L 06/28/20 19:11 76 16 97 06/28/20 18:09 97.8 F 73 22 156/60 97 06/28/20 16:53 97.3 F 74 20 156/60 97 General Appearance: no apparent distress, alert, other (morbidly obese) Neurologic Exam: cooperative, disoriented Eye Exam: eyes nml inspection Ears, Nose, Throat Exam: moist mucous membranes Neck Exam: normal inspection Respiratory Exam: normal breath sounds, lungs clear, No crackles/rales, No rhonchi, No wheezing Cardiovascular Exam: regular rate/rhythm, normal heart sounds, No murmur Gastrointestinal/Abdomen Exam: soft, normal bowel sounds, tenderness (diffuse, scattered. Copious pannus so exam is difficult), No distention, No mass, No guarding, No rebound Back Exam: normal inspection, No rash Extremity Exam: other (generally obese; no pitting edema in LE bilat) Skin Exam: normal color, warm, dry, No rash Results - Labs Lab/Micro Results: Lab Results-Last 24 Hours 06/28/20 06/28/20 06/28/20 Range/Units 01:25 17:06 17:37 WBC 5.1 (4.0-10.5) K/mm3 RBC 3.62 L (4.1-5.4) M/mm3 Hgb 11.4 L (12.0-16.0) gm/dl Hct 38.5 (35-47) % MCV 106.4 H (78-100) fl MCH 31.5 (26-32) pg MCHC 29.6 L (32-36) g/dl RDW 12.8 (11.5-14.0) % Plt Count 167 (150-450) K/mm3 MPV 10.3 (7.5-11.0) fl Gran % 38.3 (36.0-66.0) % Eos # (Auto) 0.21 (0-0.5) Absolute Lymphs (auto) 2.57 (1.0-4.6) Absolute Monos (auto) 0.37 (0.0-1.3) Lymphocytes % 50.2 H (24.0-44.0) % Monocytes % 7.2 (0.0-12.0) % Eosinophils % 4.1 (0.00-5.0) % Basophils % 0.2 (0.0-0.4) % Absolute Granulocytes 1.96 (1.4-6.9) Basophils # 0.01 (0-0.4) Puncture Site RIGHT RADIAL pCO2 38 (35-45) mmHg pO2 111 H (75-100) mmHg Base Excess 23.5 H (-2.0-2.0) O2 Saturation 90.5 L (94-100) g/dF ABG pH 7.69 H* (7.35-7.45) ABG HCO3 45.9 H* (22-28) ABG O2 Sat (Measured) 99.0 (95-100) % Dustin Test YES A-a Gradient 41 a/A Ratio 0.73 Hemoglobin 11.8 Carboxyhemoglobin 7.4 H* (0.0-6.9) % THgb Methemoglobin 1.1 L (1.4-1.5) % Potassium 4.7 (3.5-5.1) Temperature 37.0 C POC O2 Flow Rate 28 % Sodium (137-145) mmol/L Chloride (98-107) mmol/L Carbon Dioxide (22-30) mmol/L Anion Gap (5-15) MEQ/L BUN (7-17) mg/dL Creatinine (0.52-1.04) mg/dL Estimated GFR ML/MIN Glucose (74-106) mg/dL POC Glucometer (74 to 106) mg/dL Lactic Acid 1.0 (0.4-2.0) Calcium (8.4-10.2) mg/dL Total Bilirubin (0.2-1.3) mg/dL AST (14-36) U/L ALT (0-35) U/L Alkaline Phosphatase (38-126) U/L Creatine Kinase (30-135) U/L Troponin I < 0.012 (0.000-0.034) ng/mL Serum Total Protein (6.3-8.2) g/dL Albumin (3.5-5.0) g/dL Prealbumin (17.6-36.0) mg/dL TSH 3rd Generation (0.47-4.68) mIU/L Urine Color (YELLOW) Urine Appearance (CLEAR) Urine pH (5-6) Ur Specific [place] (1.005-1.025) Urine Protein (Negative) Urine Ketones (NEGATIVE) Urine Blood (0-5) Eugenio/ul Urine Nitrite (NEGATIVE) Urine Bilirubin (NEGATIVE) Urine Urobilinogen (0-1) mg/dL Ur Leukocyte Esterase (NEGATIVE) Urine WBC (Auto) (0-5) /HPF Urine RBC (Auto) (0-2) /HPF U Epithel Cells (Auto) (FEW) /HPF Urine Bacteria (Auto) (NEGATIVE) /HPF Amorphous Crystals (NEGATIVE) /HPF Urine Mucus (Auto) (NEGATIVE) /HPF Urine Culture Reflexed (NO) Urine Glucose (NEGATIVE) mg/dL 06/28/20 06/28/20 06/28/20 Range/Units 17:37 17:37 19:37 WBC (4.0-10.5) K/mm3 RBC (4.1-5.4) M/mm3 Hgb (12.0-16.0) gm/dl Hct (35-47) % MCV (78-100) fl MCH (26-32) pg MCHC (32-36) g/dl RDW (11.5-14.0) % Plt Count (150-450) K/mm3 MPV (7.5-11.0) fl Gran % (36.0-66.0) % Eos # (Auto) (0-0.5) Absolute Lymphs (auto) (1.0-4.6) Absolute Monos (auto) (0.0-1.3) Lymphocytes % (24.0-44.0) % Monocytes % (0.0-12.0) % Eosinophils % (0.00-5.0) % Basophils % (0.0-0.4) % Absolute Granulocytes (1.4-6.9) Basophils # (0-0.4) Puncture Site pCO2 (35-45) mmHg pO2 (75-100) mmHg Base Excess (-2.0-2.0) O2 Saturation (94-100) g/dF ABG pH (7.35-7.45) ABG HCO3 (22-28) ABG O2 Sat (Measured) (95-100) % Dustin Test A-a Gradient a/A Ratio Hemoglobin Carboxyhemoglobin (0.0-6.9) % THgb Methemoglobin (1.4-1.5) % Potassium 4.1 (3.5-5.1) Temperature C POC O2 Flow Rate % Sodium 139 (137-145) mmol/L Chloride 88 L (98-107) mmol/L Carbon Dioxide 46 H (22-30) mmol/L Anion Gap 9.1 (5-15) MEQ/L BUN 12 (7-17) mg/dL Creatinine 0.27 L (0.52-1.04) mg/dL Estimated GFR > 60.0 ML/MIN Glucose 156 H (74-106) mg/dL POC Glucometer (74 to 106) mg/dL Lactic Acid (0.4-2.0) Calcium 9.5 (8.4-10.2) mg/dL Total Bilirubin 0.90 (0.2-1.3) mg/dL AST 33 (14-36) U/L ALT 17 (0-35) U/L Alkaline Phosphatase 60 (38-126) U/L Creatine Kinase < 20 L (30-135) U/L Troponin I < 0.012 (0.000-0.034) ng/mL Serum Total Protein 7.3 (6.3-8.2) g/dL Albumin 3.7 (3.5-5.0) g/dL Prealbumin (17.6-36.0) mg/dL TSH 3rd Generation 0.093 L (0.47-4.68) mIU/L Urine Color YELLOW (YELLOW) Urine Appearance CLOUDY (CLEAR) Urine pH 7.0 (5-6) Ur Specific [place] 1.015 (1.005-1.025) Urine Protein 30 (Negative) Urine Ketones NEGATIVE (NEGATIVE) Urine Blood SMALL (0-5) Eugenio/ul Urine Nitrite NEGATIVE (NEGATIVE) Urine Bilirubin NEGATIVE (NEGATIVE) Urine Urobilinogen 4 (0-1) mg/dL Ur Leukocyte Esterase NEGATIVE (NEGATIVE) Urine WBC (Auto) 3-5 (0-5) /HPF Urine RBC (Auto) 3-5 (0-2) /HPF U Epithel Cells (Auto) NONE (FEW) /HPF Urine Bacteria (Auto) RARE (NEGATIVE) /HPF Amorphous Crystals FEW (NEGATIVE) /HPF Urine Mucus (Auto) MANY (NEGATIVE) /HPF Urine Culture Reflexed YES (NO) Urine Glucose NEGATIVE (NEGATIVE) mg/dL 06/28/20 06/28/20 06/29/20 Range/Units 20:56 23:44 01:20 WBC (4.0-10.5) K/mm3 RBC (4.1-5.4) M/mm3 Hgb (12.0-16.0) gm/dl Hct (35-47) % MCV (78-100) fl MCH (26-32) pg MCHC (32-36) g/dl RDW (11.5-14.0) % Plt Count (150-450) K/mm3 MPV (7.5-11.0) fl Gran % (36.0-66.0) % Eos # (Auto) (0-0.5) Absolute Lymphs (auto) (1.0-4.6) Absolute Monos (auto) (0.0-1.3) Lymphocytes % (24.0-44.0) % Monocytes % (0.0-12.0) % Eosinophils % (0.00-5.0) % Basophils % (0.0-0.4) % Absolute Granulocytes (1.4-6.9) Basophils # (0-0.4) Puncture Site pCO2 (35-45) mmHg pO2 (75-100) mmHg Base Excess (-2.0-2.0) O2 Saturation (94-100) g/dF ABG pH (7.35-7.45) ABG HCO3 (22-28) ABG O2 Sat (Measured) (95-100) % Dustin Test A-a Gradient a/A Ratio Hemoglobin Carboxyhemoglobin (0.0-6.9) % THgb Methemoglobin (1.4-1.5) % Potassium (3.5-5.1) Temperature C POC O2 Flow Rate % Sodium (137-145) mmol/L Chloride (98-107) mmol/L Carbon Dioxide (22-30) mmol/L Anion Gap (5-15) MEQ/L BUN (7-17) mg/dL Creatinine (0.52-1.04) mg/dL Estimated GFR ML/MIN Glucose (74-106) mg/dL POC Glucometer 169 H (74 to 106) mg/dL Lactic Acid (0.4-2.0) Calcium (8.4-10.2) mg/dL Total Bilirubin (0.2-1.3) mg/dL AST (14-36) U/L ALT (0-35) U/L Alkaline Phosphatase (38-126) U/L Creatine Kinase (30-135) U/L Troponin I < 0.012 (0.000-0.034) ng/mL Serum Total Protein (6.3-8.2) g/dL Albumin (3.5-5.0) g/dL Prealbumin 16.21 L (17.6-36.0) mg/dL TSH 3rd Generation (0.47-4.68) mIU/L Urine Color (YELLOW) Urine Appearance (CLEAR) Urine pH (5-6) Ur Specific [place] (1.005-1.025) Urine Protein (Negative) Urine Ketones (NEGATIVE) Urine Blood (0-5) Eugenio/ul Urine Nitrite (NEGATIVE) Urine Bilirubin (NEGATIVE) Urine Urobilinogen (0-1) mg/dL Ur Leukocyte Esterase (NEGATIVE) Urine WBC (Auto) (0-5) /HPF Urine RBC (Auto) (0-2) /HPF U Epithel Cells (Auto) (FEW) /HPF Urine Bacteria (Auto) (NEGATIVE) /HPF Amorphous Crystals (NEGATIVE) /HPF Urine Mucus (Auto) (NEGATIVE) /HPF Urine Culture Reflexed (NO) Urine Glucose (NEGATIVE) mg/dL 06/29/20 06/29/20 06/29/20 Range/Units 01:25 01:25 06:48 WBC 6.7 (4.0-10.5) K/mm3 RBC 3.34 L (4.1-5.4) M/mm3 Hgb 10.5 L (12.0-16.0) gm/dl Hct 35.0 (35-47) % MCV 104.8 H (78-100) fl MCH 31.4 (26-32) pg MCHC 30.0 L (32-36) g/dl RDW 12.7 (11.5-14.0) % Plt Count 156 (150-450) K/mm3 MPV 10.0 (7.5-11.0) fl Gran % 75.2 H (36.0-66.0) % Eos # (Auto) 0 (0-0.5) Absolute Lymphs (auto) 1.13 (1.0-4.6) Absolute Monos (auto) 0.52 (0.0-1.3) Lymphocytes % 16.8 L (24.0-44.0) % Monocytes % 7.7 (0.0-12.0) % Eosinophils % 0.0 (0.00-5.0) % Basophils % 0.3 (0.0-0.4) % Absolute Granulocytes 5.06 (1.4-6.9) Basophils # 0.02 (0-0.4) Puncture Site pCO2 (35-45) mmHg pO2 (75-100) mmHg Base Excess (-2.0-2.0) O2 Saturation (94-100) g/dF ABG pH (7.35-7.45) ABG HCO3 (22-28) ABG O2 Sat (Measured) (95-100) % Dustin Test A-a Gradient a/A Ratio Hemoglobin Carboxyhemoglobin (0.0-6.9) % THgb Methemoglobin (1.4-1.5) % Potassium 3.9 (3.5-5.1) Temperature C POC O2 Flow Rate % Sodium 138 (137-145) mmol/L Chloride 93 L (98-107) mmol/L Carbon Dioxide 42 H (22-30) mmol/L Anion Gap 6.9 (5-15) MEQ/L BUN 12 (7-17) mg/dL Creatinine 0.17 L (0.52-1.04) mg/dL Estimated GFR > 60.0 ML/MIN Glucose 140 H (74-106) mg/dL POC Glucometer 75 (74 to 106) mg/dL Lactic Acid (0.4-2.0) Calcium 8.8 (8.4-10.2) mg/dL Total Bilirubin 0.70 (0.2-1.3) mg/dL AST 27 (14-36) U/L ALT 15 (0-35) U/L Alkaline Phosphatase 51 (38-126) U/L Creatine Kinase (30-135) U/L Troponin I (0.000-0.034) ng/mL Serum Total Protein 6.7 (6.3-8.2) g/dL Albumin 3.3 L (3.5-5.0) g/dL Prealbumin (17.6-36.0) mg/dL TSH 3rd Generation (0.47-4.68) mIU/L Urine Color (YELLOW) Urine Appearance (CLEAR) Urine pH (5-6) Ur Specific [place] (1.005-1.025) Urine Protein (Negative) Urine Ketones (NEGATIVE) Urine Blood (0-5) Eugenio/ul Urine Nitrite (NEGATIVE) Urine Bilirubin (NEGATIVE) Urine Urobilinogen (0-1) mg/dL Ur Leukocyte Esterase (NEGATIVE) Urine WBC (Auto) (0-5) /HPF Urine RBC (Auto) (0-2) /HPF U Epithel Cells (Auto) (FEW) /HPF Urine Bacteria (Auto) (NEGATIVE) /HPF Amorphous Crystals (NEGATIVE) /HPF Urine Mucus (Auto) (NEGATIVE) /HPF Urine Culture Reflexed (NO) Urine Glucose (NEGATIVE) mg/dL Microbiology 06/28/20 19:37 Urine Culture - Preliminary Catherized NO GROWTH TO DATE Accuchecks Date 06/29/20 - Radiology Impressions Radiology Exams & Impressions: Radiology Procedures Category Date Time Status HEAD WITHOUT CONTRAST [CT] Stat Exams 06/28/20 17:17 Taken SHOULDER Stat Exams 06/28/20 18:19 Taken - Other Procedures and Tests Respiratory Therapy 06/28/20 23:16 Oxygen Nasal Cannula 2 lpm 06/29/20 01:42 Respiratory Therapy Assessment DAILY 06/29/20 08:15 EKG ROUTINE Assessment/Plan (1) Altered mental status Current Visit: Yes Status: Acute Qualifiers: Altered mental status type: disorientation Qualified Code(s): R41.0 - Disorientation, unspecified Assessment & Plan: Will get RN to speak with family and possibly ascertain her usual mental status. Will get records from Dr. Alegria's office as well. CT head in ER was non acute. Will have EKG repeated; troponins neg x 3, but EKG with possible absence of p waves. Code(s): R41.82 - ALTERED MENTAL STATUS, UNSPECIFIED (2) Seborrhea Current Visit: Yes Status: Acute Assessment & Plan: L ear - ketoconazole topical. Code(s): L21.9 - SEBORRHEIC DERMATITIS, UNSPECIFIED (3) Diabetes mellitus Current Visit: Yes Status: Chronic Assessment & Plan: Will need records - unsure if on insulin - cover with sliding scale here. Code(s): E11.9 - TYPE 2 DIABETES MELLITUS WITHOUT COMPLICATIONS (4) Osteoarthritis Current Visit: Yes Status: Acute Qualifiers: Osteoarthritis location: unspecified site Osteoarthritis type: unspecified Qualified Code(s): M19.90 - Unspecified osteoarthritis, unspecified site Assessment & Plan: Currently, I'm assuming this is the reason that she's been bedridding. Consult PT. pt notes she doesn't think they'll be able to do anything with her. Code(s): M19.90 - UNSPECIFIED OSTEOARTHRITIS, UNSPECIFIED SITE (5) Anxiety Current Visit: Yes Status: Acute Code(s): F41.9 - ANXIETY DISORDER, UNSPECIFIED (6) Low TSH level Current Visit: Yes Status: Acute Assessment & Plan: check T3/T4. Code(s): R79.89 - OTHER SPECIFIED ABNORMAL FINDINGS OF BLOOD CHEMISTRY (7) Megaloblastic anemia Current Visit: Yes Status: Acute Assessment & Plan: check B12/folate. Mild. Code(s): D53.1 - OTHER MEGALOBLASTIC ANEMIAS, NOT ELSEWHERE CLASSIFIED (8) Metabolic alkalosis with respiratory acidosis Current Visit: Yes Status: Acute Assessment & Plan: Better with fluids; recheck in a.m. Code(s): E87.4 - MIXED DISORDER OF ACID-BASE BALANCE
--- NOTE | 2020-06-29 08:41 | XRAY ---
Indication: Acute mental status change. Multiple contiguous axial images obtained through the head without contrast. Comparison: None Age-appropriate global atrophy. No acute intracranial hemorrhage, abnormal extra-axial fluid collection, or mass effect. Fourth ventricle is midline without hydrocephalus. Langston-white matter differentiation preserved. Bony calvarium intact. Complete opacification of the left and near complete opacification of the right mastoid air cells presumed inflammatory. Visualized paranasal sinuses are clear. Impression: 1. Opacification of both mastoid air cells presumed inflammatory. 2. Remaining CT head without contrast exam is negative.
--- NOTE | 2020-06-29 08:41 | XRAY ---
Indication: Frozen shoulder. Comparison: None AP and scapular Y view left shoulder demonstrates mild osteopenia and mild AC degenerative arthropathy. No other bony, articular, or soft tissue abnormalities.
[2020-06-29] MEDS ORDERED: Ventolin Hfa MDI IH PRN (09:41)
[2020-06-29] MEDS ORDERED: HYDROXYZINE HCL 50 MG PO SCH (09:45)
[2020-06-29] MEDS ORDERED: Voltaren GEL TOP PRN (09:45)
[2020-06-29] MEDS ORDERED: INSULIN GLARGINE HUM REC ANLOG 25 UNIT SQ SCH ×2 (10:00→22:00)
[2020-06-29] MEDS ORDERED: MEDICATION INTERVENTION PO SCH (10:00)
[2020-06-29] MEDS ORDERED: NON-FORMULARY ITEM (Naloxegol Oxalate [Movantik] 25 MG) PO SCH (10:00)
[2020-06-29] MEDS ORDERED: NON-FORMULARY ITEM (Bupropion Hcl [Wellbutrin Xl] 300 MG) PO SCH (10:00)
[2020-06-29] MEDS ORDERED: Colace 100 MG PO SCH (10:00)
[2020-06-29] MEDS ORDERED: NON-FORMULARY ITEM (Omeprazole [Omeprazole] 20 MG) PO SCH (10:00)
[2020-06-29] MEDS ORDERED: SYNTHROID 125 MCG PO SCH (10:00)
[2020-06-29] MEDS ORDERED: FLUZONE HIGH-DOSE QUAD 2020-21 IM ONE (10:00)
[2020-06-29] MEDS ORDERED: FLUTICASONE FUROATE IH SCH (10:00)
[2020-06-29] MEDS ORDERED: Amaryl 2 MG PO SCH (10:00)
[2020-06-29] MEDS: Protonix 40MG Tablet PO SCH (10:07)
[2020-06-29] MEDS: Klor Con 10 MEQ PO SCH ×2 (10:07→22:13)
[2020-06-29] MEDS: XANAX 1 MG PO SCH ×3 (10:07→22:14)
[2020-06-29] MEDS: Lopressor 25MG Tab PO SCH (10:08)
[2020-06-29] MEDS: Wellbutrin XL 150 MG PO SCH (10:08)
[2020-06-29] MEDS: Singulair 10 MG PO SCH (10:08)
[2020-06-29] MEDS: CLARITIN 10 MG PO SCH (10:08)
[2020-06-29] MEDS: Colace 100 MG PO SCH (10:08)
[2020-06-29] MEDS: Nizoral CREAM TOP SCH ×2 (10:11→22:15)
[2020-06-29 10:12] LABS: Folate (Folic Acid) 5.84 ng/mL (2.76 - >20)
[2020-06-29] MEDS ORDERED: MEDICATION INTERVENTION MC SCH (10:15)
[2020-06-29] MEDS: AMARYL 4 MG PO SCH ×2 (11:23→16:36)
[2020-06-29] MEDS: Lantus Insulin SQ SCH (11:24)
[2020-06-29] MEDS: ATARAX 25 MG PO SCH ×2 (11:57→17:22)
[2020-06-29] MEDS: NORCO 7.5/325 MG TAB PO SCH ×2 (11:57→17:22)
[2020-06-29] MEDS ORDERED: Lantus Insulin SQ SCH (22:00)
[2020-06-30] MEDS: ATARAX 25 MG PO SCH ×3 (00:09→12:32)
[2020-06-30] MEDS: NORCO 7.5/325 MG TAB PO SCH ×3 (00:09→12:33)
[2020-06-30] MEDS: Sodium Chloride 0.9% 1000 ML 1,000 ML IV SCH (01:15)
[2020-06-30 05:03] LABS: Hematocrit 37.7 % (35-47); Mean Cell Volume 105.6 fl (78-100); Mean Corpuscular Hemoglobin 30.8 pg (26-32); Mean Corpuscular Hgb Concent. 29.2 g/dl (32-36); Platelet Count 169 K/mm3 (150-450); Red Blood Count 3.57 M/mm3 (4.1-5.4); White Blood Count 5.7 K/mm3 (4.0-10.5)
[2020-06-30 05:19] LABS: ANION GAP 7.9 MEQ/L (5-15); BLOOD UREA NITROGEN 6 mg/dL (7-17); CHLORIDE 96 mmol/L (98-107); Calcium 9.2 mg/dL (8.4-10.2); Carbon Dioxide 40 mmol/L (22-30); Creatinine 1 0.21 mg/dL (0.52-1.04); EST GLOMERULAR FILTRATION RATE > 60.0 ML/MIN; Glucose 122 mg/dL (74-106); Potassium 4.2 mmol/L (3.5-5.1); SODIUM 139 mmol/L (137-145)
--- NOTE | 2020-06-30 09:04 | PCM.DS ---
Discharge Summary Date of Admission: 06/28/20 21:30 Admitting Physician: LANG SMILEY Primary Care Provider: KATHE ALEGRIA Allergies Allergies Sulfa (Sulfonamide Antibiotics) [Sulfa(Sulfonamide Antibiotics)] Allergy (Unknown, Verified 06/28/20 22:56) Hospital Summary - Hospital Course Hospital Course: Pt is 70 yo female pt of Dr. Alegria with morbid obesity, hypothyroid, CAD, DM, bedridden x2.5 yrs who was admitted through ER for AMS. Apparently for the past 2 mo or so she has had some decrease in mental acuity. In ER, her head CT was nonacute. Her electrolytes indicated some acid/base disturbance; no focal infection was found. She was brought in in a soiled nightgown, but per discharge planning it sounds like pt does have 24 hour care from persons inside and outside the home and normally she is well cared for. Apparently pt had an injury as well as some emotional upset a few years ago and started just lying in bed and now she consistently just lays on her L side. She actually only had one small stage II ulceration on complete exam in ER. Pt was c/o bilat ear pain; the pinna of the L ear is erythematous so ketoconazole cream was started yesterday; over the past 24h her Tmax was 100.0 so in absence of other foci of possible infection, will treat for possible cellulitis of the external ear. TSH was decreased on admission; free T4 elevated. Decreasing levothyroxine from 250 to 212mcg/d - she will need TSH redrawn in 2 months. Today pt's electrolytes are improved. She is tolerating po. Would really like to go home. I am in fact discharging her to home today; discharge planning is helping to get the family any needed DME and other resources. - Vitals & Intake/Output Vital Signs: Vital Signs Temperature 98.9 F 06/30/20 08:00 Pulse Rate 89 06/30/20 08:00 Respiratory Rate 16 06/30/20 08:00 Blood Pressure 132/63 06/30/20 08:00 O2 Sat by Pulse Oximetry 95 06/30/20 08:00 Intake & Output: Intake & Output 06/27/20 06/28/20 06/29/20 06/30/20 11:59 11:59 11:59 11:59 Intake Total 1562 2803 Output Total 650 1200 Balance 912 1603 Weight 112.1 kg - Lab Result Diagrams: 06/30/20 04:20 06/30/20 04:20 Lab Results-Last 24 Hrs: Lab Results-Last 24 Hours 06/29/20 06/29/20 06/29/20 Range/Units 07:56 11:22 16:02 WBC (4.0-10.5) K/mm3 RBC (4.1-5.4) M/mm3 Hgb (12.0-16.0) gm/dl Hct (35-47) % MCV (78-100) fl MCH (26-32) pg MCHC (32-36) g/dl RDW (11.5-14.0) % Plt Count (150-450) K/mm3 MPV (7.5-11.0) fl Sodium (137-145) mmol/L Potassium (3.5-5.1) mmol/L Chloride (98-107) mmol/L Carbon Dioxide (22-30) mmol/L Anion Gap (5-15) MEQ/L BUN (7-17) mg/dL Creatinine (0.52-1.04) mg/dL Estimated GFR ML/MIN Glucose (74-106) mg/dL POC Glucometer 84 71 L (74 to 106) mg/dL Hemoglobin A1c < 4.0 L (4.5-6.0) % Calcium (8.4-10.2) mg/dL Vitamin B12 (239-931) pg/mL Folic Acid (2.76 - >20) ng/mL Free T4 (0.76-1.46) ng/dL Free T3 pg/mL (2.77-5.27) pg/mL 06/29/20 06/29/20 06/29/20 Range/Units 20:58 Unknown Unknown WBC (4.0-10.5) K/mm3 RBC (4.1-5.4) M/mm3 Hgb (12.0-16.0) gm/dl Hct (35-47) % MCV (78-100) fl MCH (26-32) pg MCHC (32-36) g/dl RDW (11.5-14.0) % Plt Count (150-450) K/mm3 MPV (7.5-11.0) fl Sodium (137-145) mmol/L Potassium (3.5-5.1) mmol/L Chloride (98-107) mmol/L Carbon Dioxide (22-30) mmol/L Anion Gap (5-15) MEQ/L BUN (7-17) mg/dL Creatinine (0.52-1.04) mg/dL Estimated GFR ML/MIN Glucose (74-106) mg/dL POC Glucometer 110 H (74 to 106) mg/dL Hemoglobin A1c (4.5-6.0) % Calcium (8.4-10.2) mg/dL Vitamin B12 (239-931) pg/mL Folic Acid (2.76 - >20) ng/mL Free T4 1.85 H (0.76-1.46) ng/dL Free T3 pg/mL 3.03 (2.77-5.27) pg/mL 06/29/20 06/30/20 06/30/20 Range/Units Unknown 04:20 04:20 WBC 5.7 (4.0-10.5) K/mm3 RBC 3.57 L (4.1-5.4) M/mm3 Hgb 11.0 L (12.0-16.0) gm/dl Hct 37.7 (35-47) % MCV 105.6 H (78-100) fl MCH 30.8 (26-32) pg MCHC 29.2 L (32-36) g/dl RDW 13.0 (11.5-14.0) % Plt Count 169 (150-450) K/mm3 MPV 10.0 (7.5-11.0) fl Sodium 139 (137-145) mmol/L Potassium 4.2 (3.5-5.1) mmol/L Chloride 96 L (98-107) mmol/L Carbon Dioxide 40 H (22-30) mmol/L Anion Gap 7.9 (5-15) MEQ/L BUN 6 L (7-17) mg/dL Creatinine 0.21 L (0.52-1.04) mg/dL Estimated GFR > 60.0 ML/MIN Glucose 122 H (74-106) mg/dL POC Glucometer (74 to 106) mg/dL Hemoglobin A1c (4.5-6.0) % Calcium 9.2 (8.4-10.2) mg/dL Vitamin B12 473 (874-931) pg/mL Folic Acid 5.84 (2.76 - >20) ng/mL Free T4 (0.76-1.46) ng/dL Free T3 pg/mL (2.77-5.27) pg/mL Micro Results-Entire Visit: Microbiology 06/28/20 17:37 Blood Culture - Preliminary Blood NO GROWTH TO DATE 06/28/20 17:50 Blood Culture - Preliminary Blood NO GROWTH TO DATE 06/28/20 19:37 Urine Culture - Final Catherized MIXED LACEY; 3 OR MORE TYPES. NO PREDOMINANT ORGANISM. NO FURTHER WORKUP. PLEASE RESUBMIT IF CLINICALLY INDICATED. Accuchecks Date 06/29/20 Date 06/29/20 Date 06/29/20 Time 21:30 - Radiology Exams Ordered Rad Exams-Entire Visit: Radiology Procedures Category Date Time Status HEAD WITHOUT CONTRAST [CT] Stat Exams 06/28/20 17:17 Completed SHOULDER Stat Exams 06/28/20 18:19 Completed - Procedures and Test Procedures and Tests throughout Hospitalization: Therapy Orders & Screens 06/28/20 23:00 RT Screen per Nursing Assess ONCE Comment: Protocol Order Physician Instructions: Greater than 3 points order RT Admission Screen Reason For Exam: Triggered on Admission Diagnosis: alteren mental status Diagnosis: alteren mental status Pneumonia: No Home O2: Yes Asthma: No CHF: No Home CPAP/BIPAP: No Home Nebs/MDI: Yes Total Points: 10 06/28/20 23:16 Oxygen Nasal Cannula 2 lpm Comment: Diagnosis: alteren mental status 06/29/20 01:42 Respiratory Therapy Assessment DAILY Comment: Diagnosis: alteren mental status 06/29/20 08:00 OT Screen per Nursing Assess ONCE Comment: Protocol Order Physician Instructions: Greater than 3 points order OT Admission Screening Reason For Exam: Triggered on Admission Diagnosis: alteren mental status Open Wound/Cellutlitis/Pressure Ulcers: No Acute Fx/ORIF/Change in wt bearing status: No Severe MUSCULOSKELETAL pain: Yes ADL Dysfunction: Yes Acute CVA w/Hemiparesis/Hemiplegia: No Decreased Functional Mobility/Strength: Yes Sprain/Strain: No Acute Post-op Mobility Dysfunction: No Total Points: 9 PT Screen per Nursing Assess ONCE Comment: Protocol Order Physician Instructions: Greater than 3 points order PT Admission Screenin Reason For Exam: Triggered on Admission Diagnosis: alteren mental status Open Wound/Cellutlitis/Pressure Ulcers: No Acute Fx/ORIF/Change in wt bearing status: No Severe MUSCULOSKELETAL pain: Yes ADL Dysfunction: Yes Acute CVA w/Hemiparesis/Hemiplegia: No Decreased Functional Mobility/Strength: Yes Sprain/Strain: No Acute Post-op Mobility Dysfunction: No Total Points: 9 06/29/20 08:15 EKG ROUTINE Comment: Diagnosis: alteren mental status Discharge Exam General Appearance: no apparent distress, alert, obese (morbidly) Neurologic Exam: cooperative, normal mood/affect Eye Exam: eyes nml inspection Ears, Nose, Throat Exam: moist mucous membranes Respiratory Exam: normal breath sounds, lungs clear, No crackles/rales, No rhonchi, No wheezing Cardiovascular Exam: regular rate/rhythm, normal heart sounds, No murmur Gastrointestinal/Abdomen Exam: normal bowel sounds Back Exam: normal inspection, No rash Skin Exam: normal color, warm, dry, No rash Final Diagnosis/Problem List - Final Discharge Diagnosis/Problem (1) Altered mental status Current Visit: Yes Status: Chronic Assessment & Plan: Unable to do an MRI of the brain here (d/t pt's habitus and inability to tolerate anything aside from lying on L side), but CT was negative for acute process. Can continue workup with her PCP. Code(s): R41.82 - ALTERED MENTAL STATUS, UNSPECIFIED (2) Cellulitis of external ear Current Visit: Yes Status: Acute Assessment & Plan: Rocephin 1g IV here x 1; to start keflex tomorrow. Eat yogurt while on antibiotics. Code(s): H60.10 - CELLULITIS OF EXTERNAL EAR, UNSPECIFIED EAR (3) Diabetes mellitus Current Visit: Yes Status: Chronic Code(s): E11.9 - TYPE 2 DIABETES MELLITUS WITHOUT COMPLICATIONS (4) Osteoarthritis Current Visit: Yes Status: Chronic Code(s): M19.90 - UNSPECIFIED OSTEOARTHRITIS, UNSPECIFIED SITE (5) Anxiety Current Visit: Yes Status: Chronic Code(s): F41.9 - ANXIETY DISORDER, UNSPECIFIED (6) Low TSH level Current Visit: Yes Status: Acute Assessment & Plan: changed levothyroxine from 250mcg/d to 212 mcg/d. Code(s): R79.89 - OTHER SPECIFIED ABNORMAL FINDINGS OF BLOOD CHEMISTRY (7) Megaloblastic anemia Current Visit: Yes Status: Acute Assessment & Plan: B12 and folate are wnl. Code(s): D53.1 - OTHER MEGALOBLASTIC ANEMIAS, NOT ELSEWHERE CLASSIFIED (8) Metabolic alkalosis with respiratory acidosis Current Visit: Yes Status: Resolved Code(s): E87.4 - MIXED DISORDER OF ACID- BASE BALANCE - Discharge Disposition: Home, Self-Care Condition: Stable Prescriptions: New Cephalexin Monohydrate [Keflex] 500 mg PO QID #24 capsule Ketoconazole Cream [Nizoral CREAM] 1 gm TOP BID #1 tube Nystatin Cream 30 gm [Nystop 30 gm Cream] 1 gm TOP BID #1 tube Levothyroxine Sodium 100 Mcg [Synthroid 100 Mcg] 100 mcg PO DAILY #30 tablet Levothyroxine Sodium 112 Mcg [Synthroid 112 Mcg] 112 mcg PO DAILY #30 tablet Continue Loratadine 10 mg [Claritin 10 mg] 10 mg PO DAILY Montelukast Sodium 10 mg PO DAILY Potassium Chloride 10 Meq Tab* [Klor Con 10 MEQ] 20 meq PO BID Albuterol Sulfate [Proair Hfa] 2 puffs IH Q4H PRN PRN PRN Reason: Shortness Of Breath/Wheezing Glimepiride 2 mg [Amaryl 2 MG] 4 mg PO BID Hydrocodone Bit/Acetaminophen [Hydrocodon-Acetaminoph 7.5-325] 1 each PO Q6H Alprazolam 1 mg [Xanax 1 mg] 1 mg PO TID Omeprazole 20 mg PO DAILY Naloxegol Oxalate [Movantik] 25 mg PO DAILY Metoprolol Tartrate 25 mg [Lopressor 25MG Tab] 25 mg PO DAILY Docusate Sodium 100 mg [Colace 100 MG] 1 - 2 tab PO DAILY Fluticasone Furoate [Arnuity Ellipta] 1 puff IH DAILY hydrOXYzine HCL [Hydroxyzine HCl] 50 mg PO Q6H Insulin Glargine,Hum.rec.anlog [Lantus Solostar] 50 unit SQ DAILY Bupropion HCl [Wellbutrin Xl] 300 mg PO DAILY Diclofenac Sodium Gel [Voltaren GEL] 1 applic TOP QID PRN Insulin Glargine,Hum.rec.anlog [Lantus Solostar] 25 unit SQ HS Furosemide [Lasix] 20 mg PO BID Discontinued Levothyroxine Sodium [Synthroid] 250 mcg PO DAILY Additional Instructions: Eat yogurt or take a probiotic daily while you are on antibiotics. See Dr. Alegria in follow up within 1 week. You will need your thyroid rechecked in 2 months as we have changed the dose of your thyroid medicine. Make sure you get refills and the lab checked so that Dr. Alegria can make sure you have the correct dose of medicine. Do NOT ever just stop taking the thyroid medicine! Start the keflex on 07/01/20 and take it until it's gone. Follow up with: KATHE ALEGRIA [Primary Care Provider] -
[2020-06-30] MEDS: AMARYL 4 MG PO SCH (09:35)
[2020-06-30] MEDS ORDERED: NYSTOP 30 GM CREAM TOP SCH (10:00)
[2020-06-30] MEDS ORDERED: SYNTHROID 100 MCG PO SCH (10:00)
[2020-06-30] MEDS ORDERED: ROCEPHIN 1 Gm-D5w 50 ml Bag** 1 G/50 ML IVPB IV SCH (10:00)
[2020-06-30] MEDS ORDERED: SYNTHROID 112 MCG PO SCH (10:00)
[2020-06-30] MEDS: Protonix 40MG Tablet PO SCH (10:10)
[2020-06-30] MEDS: Singulair 10 MG PO SCH (10:10)
[2020-06-30] MEDS: Colace 100 MG PO SCH (10:10)
[2020-06-30] MEDS: Klor Con 10 MEQ PO SCH (10:10)
[2020-06-30] MEDS: XANAX 1 MG PO SCH (10:10)
[2020-06-30] MEDS: CLARITIN 10 MG PO SCH (10:10)
[2020-06-30] MEDS: Wellbutrin XL 150 MG PO SCH (10:11)
[2020-06-30] MEDS: Lopressor 25MG Tab PO SCH (10:11)
[2020-06-30] MEDS: Nizoral CREAM TOP SCH (10:41)
[2020-06-30 13:16] VITALS: BP 141/63; PULSE 70; O2SAT 97
[2020-06-30] MEDS: Lantus Insulin SQ SCH (13:17)
== END 2020-06-30 12:45 | disposition home or self-care (01) ==
LOC: ED 16:53 → MED SURG 21:30
PROVIDERS: ADMIT Family Medicine; ATTEND Family Medicine
DX: R41.82 Altered mental status, unspecified (principal); Z99.81 Dependence on supplemental oxygen; Z79.899 Other long term (current) drug therapy; E11.9 Type 2 diabetes mellitus without complications; E03.9 Hypothyroidism, unspecified; J44.9 Chronic obstructive pulmonary disease, unspecified; E78.00 Pure hypercholesterolemia, unspecified; H92.03 Otalgia, bilateral; H60.10 Cellulitis of external ear, unspecified ear; M19.90 Unspecified osteoarthritis, unspecified site; F41.9 Anxiety disorder, unspecified; R79.89 Other specified abnormal findings of blood chemistry; D53.1 Other megaloblastic anemias, not elsewhere classified; E87.4 Mixed disorder of acid-base balance; I10 Essential (primary) hypertension; E78.5 Hyperlipidemia, unspecified; L21.9 Seborrheic dermatitis, unspecified
CPT/HCPCS: 36000; 36415; 36600; 51702; 70450; 73030; 80048; 80053; 81001; 82375; 82550; 82607; 82746; 82803; 82947; 83036; 83605; 84134; 84439; 84443; 84481; 84484; 85025; 85027; 87040; 87086; 93005; 93041; 94760; 96360; 96361; 96374; 96376; 99285; G0008; G0378; 90662; J2270; A9270-GY